=== PATIENT | female | born 1980 | race Caucasian/White ===

== ENCOUNTER 2017-10-30 21:45 | Emergency (ER) | payer SELFPAY ==
[2017-10-30 21:46] VITALS: BP 139/102; PULSE 110; RESP 18; TEMP 36.9; O2SAT 96; BMI 20.8
[2017-10-30 22:46] LABS: Absolute Lymphocyte Count 2.54 X10^3/ul (0.83-4.51); Absolute Neutrophil Count 8.7 X10^3/uL (2.0-7.7); Basophil# 0.06 X10^3/uL; Basophil% 0.5 % (0-1); Eosinophil# 0.41 X10^3/uL; Eosinophils% 3.2 % (0-5); Hemoglobin 12.4 g/dl (12.0-15.0); Lymphocyte # 2.54 X10^3/ul (4.0); Lymphocyte % 20.1 % (19-41); Mean Corp Hgb Conc 33.5 g/gl (32-36); Mean Corpuscular Hgb 30.3 pg (27.0-32.0); Mean Corpuscular Volume 90.5 fL (81-99); Mean Platelet Vol. 9.4 fl (6.2-12.0); Monocyte# 0.89 X10^3/uL; Neutrophil # 8.72 X10^3/uL (2.7-7.7); Platelet Count 463 K/mm3 (150-450); RBC Distribution Width CV 13.5 % (11.6-14.6); RBC Distribution Width SD 44.2 fl (35.1-43.9); Red Blood Count 4.09 M/mm3 (4.2-5.4); White Blood Count 12.6 K/mm3 (4.4-11.0)
[2017-10-30 22:49] VITALS: RESP 17
[2017-10-30 22:51] LABS: POSITIVE COUNT NO; POSITIVE DIFFERENTIAL NO; POSITIVE MORPHOLOGY NO
[2017-10-30] MEDS: Acetaminophen 500 MG Tablet 1000 MG PO (22:52)
[2017-10-30 22:58] LABS: Alcohol, Blood (Medical)-Serum < 3.0 mg/dL
[2017-10-30 22:59] LABS: Anion Gap 8 (5-15); BUN 13 mg/dL (7-18); BUN/Creat Ratio 18.4 RATIO (10-20); Calcium,Total 9.1 mg/dL (8.5-10.1); Chloride 105 mmol/L (98-107); Creatinine, Serum 0.71 mg/dL (0.55-1.02); EST Glomerular Filtration Rate 99 mL/min (>60); Est Glom Filt Rate - Afr Amer 119 mL/min (>60); Estimated Creatinine Clearance 103.44 ml/min; Glucose 113 mg/dL (74-106); Potassium 3.6 mmol/L (3.5-5.1); Sodium Level 138 mmol/L (136-145)
[2017-10-30] MEDS: clonazePAM 1 MG Tablet PO (22:59)
[2017-10-30 23:06] LABS: Pregnancy, Serum, hCG Quali. NEGATIVE Negative (0-9 Nonpreg)
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
[2017-10-30 23:25] LABS: Vista UDS pH Range 6
[2017-10-30 23:36] LABS: Amphetamine Urine VISTA POSITIVE (<1000 ng/mL); Barbiturate Urine VISTA NEGATIVE (< 200 ng/mL); Benzodiazepine Urine VISTA NEGATIVE (< 200 ng/mL); Cocaine Urine VISTA NEGATIVE (< 300 ng/mL); Ecstacy Urine VISTA NEGATIVE (< 500 ng/mL); Methadone Urine VISTA NEGATIVE (< 300 ng/mL); PCP Urine VISTA NEGATIVE (< 25 ng/mL); THC Urine VISTA NEGATIVE (< 50 ng/mL)
[2017-10-31 00:09] VITALS: RESP 13
--- NOTE | 2017-10-31 01:13 | ED.RN ---
CRISIS ON SITE
[2017-10-31 01:25] VITALS: RESP 12
[2017-10-31 02:11] VITALS: RESP 13
[2017-10-31 04:02] VITALS: RESP 20
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
[2017-10-31 05:34] VITALS: BP 124/68; PULSE 80; RESP 16; O2SAT 96
--- NOTE | 2017-10-31 05:36 | ED.RN ---
PORTABLE SAFE RETURNED TO PT.PT STATES SHE HAS THE BHARDWAJ WELL.
== END 2017-10-31 05:40 | disposition home or self-care (01) ==
PROVIDERS: Emergency Provider Emergency Medicine; Family Provider Family Medicine; PCP Family Medicine
DX: F32.9 Major depressive disorder, single episode, unspecified (principal); S61.512A Laceration without foreign body of left wrist, initial encounter; X78.1XXA Intentional self-harm by knife, initial encounter; Y93.9 Activity, unspecified; Y92.9 Unspecified place or not applicable; F41.9 Anxiety disorder, unspecified; Z79.899 Other long term (current) drug therapy
CPT/HCPCS: 80048; 80307; 80320; 84703; 85025; 99284; G0480

== ENCOUNTER 2019-11-12 14:41 | Emergency (ER) | payer MEDICAID, SELFPAY ==
[2019-11-12 14:42] VITALS: BP 133/99; PULSE 110; RESP 16; TEMP 36.6; O2SAT 96; BMI 21.0
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
[2019-11-12] MEDS: HYDROcodone Bitartrate/Apap 5/325 Tablet PO (15:14)
[2019-11-12 15:34] VITALS: BP 105/70
== END 2019-11-12 15:39 | disposition home or self-care (01) ==
LOC: ED 15:30
PROVIDERS: Emergency Provider Emergency Medicine; PCP Family Medicine
DX: S16.1XXA Strain of muscle, fascia and tendon at neck level, initial encounter (principal); S39.012A Strain of muscle, fascia and tendon of lower back, initial encounter; V89.2XXA Person injured in unspecified motor-vehicle accident, traffic, initial encounter; Y93.9 Activity, unspecified; Y92.9 Unspecified place or not applicable; Z87.891 Personal history of nicotine dependence
CPT/HCPCS: 72040; 72100; 99283

== ENCOUNTER 2021-11-29 21:40 | Emergency (ER) | payer OTHER, MEDICAID, SELFPAY ==
[2021-11-29 21:41] VITALS: BP 134/98; PULSE 100; RESP 18; TEMP 36.6; O2SAT 98; BMI 20.3
--- NOTE | 2021-11-29 22:09 | RAD_ITS ---
STUDY: X-RAY - LEFT SHOULDER REASON FOR EXAM: Female, 41 years old. Pain extending upward from the wrist. TECHNIQUE: 4 view(s) of the shoulder. COMPARISON: None. FINDINGS: Normal glenohumeral articulation. Normal acromioclavicular joint. Normal acromion. There is no acute fracture, dislocation or destructive osseous pathology. Normal humeral head and visualized proximal humerus. The soft tissue structures are unremarkable. Normal visualized pulmonary apex. RAD/Shoulder min 2 Views IMPRESSION: Normal x-ray examination of the left shoulder. Electronically Signed: Vladislav Ponce DO at 23:43 EDT ,
--- NOTE | 2021-11-29 22:10 | EX.ED.UPPERE ---
HPI History of Present Illness Chief Complaint: Upper Extremity Injury Narrative Narrative: Patient is a right hand dominant 41-year-old female. 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 She states yesterday she noticed she was having difficulty moving her wrist and holding objects and denies any trauma. She went to an urgent care where she had an x-ray obtained which was reportedly normal and was placed in a wrist brace. Patient states the pain today seems to radiate up into her forearm/elbow. She denies any trauma but states with the worsening pain she presents for reevaluation. PFSH PFSH Home Medications oxycodone-acetaminophen [Endocet] 1 tab PO Q6H PRN 3 Days #12 tab 11/30/21 [Rx Last Taken Unknown] prednisone 40 mg PO DAILY 5 Days #10 tab 11/30/21 [Rx Last Taken Unknown] Allergy/AdvReac Type Severity Reaction Status Date / Time No Known Allergies Allergy Verified 11/29/21 21:43 Social History Smoking Status: Current some day smoker tobacco type: cigarettes ROS ROS ED Constitutional Constitutional ED: Denies chills or fever(s) ENT ENT ED: Denies sore throat Cardiovascular Cardiovascular: Denies chest pain Respiratory/Chest Respiratory/Chest: Denies cough or dyspnea Gastrointestinal Gastrointestinal: Denies abdominal pain, diarrhea, nausea or vomiting Genitourinary Genitourinary ED: Denies dysuria Musculoskeletal Musculoskeletal: Reports other Details: Positive left wrist elbow shoulder pain ; Denies myalgias or neck pain Integumentary Denies Abrasions or rash Neurologic Neurologic: Denies headache(s) or paresthesias Psychiatric Psychiatric: Reports anxiety Hematologic/Lymphatic Hematologic/Lymphatic: Denies easy bleeding or easy bruising EXAM Physical Exam Const Vital Signs: 11/29/21 21:41 Temperature 97.9 F Temperature Source Temporal Pulse Rate 100 Respiratory Rate 18 Blood Pressure 134/98 H Blood Pressure Mean 110 Pulse Ox 98 Oxygen Delivery Method Room Air Positive well nourished and well developed General Appearance ED: well developed Eyes PERRL and EOMs intact bilaterally Neck full ROM and supple Neck Narrative: Negative Spurling sign bilaterally Resp normal respiratory effort and clear to auscultation bilaterally Cardio regular rate and regular rhythm Extremity Extremity Narrative: Left upper extremity is neurovascularly intact; AIN/PIN are intact and normal. Negative Tinel's and Phalen sign. Patient has pain with any type of motion of the wrist or palpation of the forearm/elbow. There is no obvious bony deformity or joint effusion. No overlying erythema or warmth to suggest infection. No asymmetric edema to suggest DVT. Neuro oriented x3 and CN's II-XII intact bilaterally Sensorium / Orientation: alert Psych Psych Narrative: Patient has a tearful/anxious affect Skin no rashes or lesions noted Skin Narrative: Capillary refills less than 3 seconds Lesions: no lesions Rashes: no rashes MDM MDM MDM Narrative Medical decision making narrative: Patient presented to the ER with increasing pain despite no new injury. Clinically she reported the pain was in her wrist and radiating up the arm which went against any type of cervical compression and she had a negative Spurling test so I felt no need for a cervical spine CT. patient reported she already had an x-ray of her wrist but did have pain in the elbow and shoulder so elected to perform x-rays of these areas. X-rays did not show any acute finding. Clinically she does not have physical exam changes to suggest a septic joint neurologic impingement lack of blood flow or compartment syndrome. I do feel her symptoms are related to tendon inflammation/tendinitis. Therefore she will continue to wear her brace and we will place her on a few days worth of steroids and pain medication and she can follow-up with orthopedics to discuss need for further testing if symptoms persist Radiography Diagnostic Testing: X-ray of the left elbow and left shoulder as interpreted by the emergency medicine physician reveals no acute fracture or dislocation. Discharge Plan Triage Chief Complaint: Upper Extremity Injury ED Provider: Shimon Iniguez Dx/Rx/DC Orders Clinical Impression: Left wrist tendinitis Instructions: ED Tendonitis Prescriptions: New prednisone 20 mg tablet 40 mg PO DAILY 5 Days Qty: 10 RF: 0 oxycodone-acetaminophen [Endocet] 5-325 mg tablet 1 tab PO Q6H PRN (Reason: pain) 3 Days Qty: 12 RF: 0 Stand Alone Forms: ED Work / School Excuse Primary Care Provider: Chito Sandoval Referrals: Chito Sandoval MD [Primary Care Provider] - Jenaro Rose DO [STAFF PHYSICIAN] - 3-5 Days if not improving Activity Restrictions/Additional Instructions: Please continue to wear your wrist brace and follow-up with orthopedics if there is no improvement in your symptoms over the next 3 to 7 days Disposition Disposition: Home, Self Care
[2021-11-29] MEDS: oxyCODONE 5 MG Tablet 10 MG PO (22:22)
[2021-11-29] MEDS: predniSONE 20 MG Tablet 60 MG PO (22:23)
--- NOTE | 2021-11-29 23:00 | RAD_ITS ---
STUDY: X-RAY - LEFT ELBOW REASON FOR EXAM: Female, 41 years old. Hit elbow at work and has had pain since. TECHNIQUE: There are view(s) of the elbow. COMPARISON: None. FINDINGS: Normal visualized humerus, radius and ulna. Normal radiocapitellar and ulnotrochlear articulations. There is no acute fracture, dislocation or destructive osseous pathology. The soft tissue structures are unremarkable. RAD/Elbow min 3 Views IMPRESSION: Normal x-ray examination of the left elbow. Electronically Signed: Vladislav Ponce DO at 23:42 EDT ,
== END 2021-11-30 00:22 | disposition home or self-care (01) ==
PROVIDERS: Emergency Provider Emergency Medicine; PCP Family Medicine; Visit Provider Emergency Medicine
DX: M77.8 Other enthesopathies, not elsewhere classified (principal); M25.512 Pain in left shoulder; F17.210 Nicotine dependence, cigarettes, uncomplicated; X58.XXXA Exposure to other specified factors, initial encounter
CPT/HCPCS: 73030; 73080; 99282